=== PATIENT | female | born 1940 | race Caucasian/White ===

== ENCOUNTER 2021-09-25 10:44 | Emergency (ER) | payer MEDICARE, OTHER, SELFPAY ==
[2021-09-25 10:54] VITALS: BP 164/72; PULSE 80; RESP 20; TEMP 37.1; O2SAT 96
--- NOTE | 2021-09-26 19:08 | ED.EAR ---
HPI - Ear Problem General Chief complaint: Ear Stated complaint: ear pain Time Seen by Provider: 09/25/21 11:40 Source: patient and RN notes reviewed Mode of arrival: ambulatory Limitations: no limitations History of Present Illness HPI Narrative: Patient presents today complaining of left ear pain since yesterday with decreased hearing. States chronic ear infections in the left ear since age 17. She comes in today requesting a refill of her Ciprodex. She currently rates her pain 12/22. Denies drainage. MD Complaint: ear pain and decreased hearing Related Data Home Medications Medication Instructions Recorded Confirmed acetaminophen 09/25/21 albuterol sulfate 09/25/21 albuterol sulfate INHALATION 09/25/21 aspirin 09/25/21 budesonide mg 09/25/21 bupropion HCl mg PO 09/25/21 cholecalciferol (vitamin D3) 09/25/21 docusate sodium PO 09/25/21 fexofenadine mg 09/25/21 [id number] INHALATION 09/25/21 [Trelegy Ellipta] ipratropium-albuterol ml INHALATION 09/25/21 levothyroxine 09/25/21 losartan 09/25/21 metoprolol succinate PO 09/25/21 pravastatin 09/25/21 vitamin B complex [B Complex] 1 cap PO DAILY 09/25/21 09/25/21 Allergies Allergy/AdvReac Type Severity Reaction Status Date / Time No Known Allergies Allergy Unverified 05/26/17 12:19 Review of Systems Review of Systems: CONSTITUTIONAL: Denies body aches, fever, chills, or sweats. EYES: Denies visual changes, redness, or discharge. ENT: Denies rhinorrhea, congestion, sore throat. + Left ear pain with decreased hearing CARDIOVASCULAR: Denies chest pain, palpitations, or edema. RESPIRATORY: Denies cough or dyspnea. GASTROINTESTINAL: Denies abdominal pain, nausea, vomiting, or diarrhea. GENITOURINARY: Denies dysuria or hematuria. SKIN: Denies rash, itching, or wounds. MUSCULOSKELETAL: Denies back pain, joint pain, or myalgia. NEUROLOGIC: Denies headache, numbness, tingling, or weakness. PSYCH: Denies depression or anxiety. [facility] / [facility] Past Medical History Medical History (Updated 09/26/21 @ 19:11 by Catrina Garcia, [facility], ) COPD (chronic obstructive pulmonary disease) High cholesterol Hypertension Hypothyroidism Comments At time of signature, I have reviewed and agree with nursing past medical, surgical, social and family history unless otherwise noted. Please see nursing chart for further information. There is no relevant family history pertinent to the presenting complaint Exam Narrative: GENERAL: Well-appearing, well-nourished, and in no acute distress. HEAD: Normocephalic, atraumatic. EYES: EOMI. No redness or drainage. Conjunctivae normal. ENT: Mucous membranes pink and moist. Nares clear. No rhinorrhea. TMs normal bilaterally after removal of bilateral cerumen impactions. Left ear canal is erythematous. See procedure note. NECK: Normal AROM. CHEST: No respiratory distress. EXTREMITIES: Normal range of motion. No edema. SKIN: Warm, dry, no rash. Capillary refill normal. Normal skin turgor. NEURO: No focal deficits. Alert and oriented x3. Gait steady. PSYCH: Normal affect. No signs of depression or anxiety. Course Vital Signs Vital signs: Vital Signs Temperature 98.8 F 09/25/21 10:54 Pulse Rate 80 09/25/21 10:54 Respiratory Rate 20 09/25/21 10:54 Blood Pressure 164/72 H 09/25/21 10:54 Pulse Oximetry 96 09/25/21 10:54 Temperature 98.8 F 09/25/21 10:54 Pulse Rate 80 09/25/21 10:54 Respiratory Rate 20 09/25/21 10:54 Blood Pressure 164/72 H 09/25/21 10:54 Pulse Oximetry 96 09/25/21 10:54 Reviewed. Pt has been instructed to follow up with her PCP regarding her elevated blood pressure today. Procedures Ear Wax Removal Both Ears: Ear Wax Removal Date: 09/25/21 Ear Wax Removal Time: 11:50 TM Examination: TM(s) intact, normal appearance Technique: ear canal curetted (Lighted curette and alligator forceps) Medical Decision Making
== END 2021-09-25 12:07 | disposition home or self-care (01) ==
PROVIDERS: Emergency Provider Nurse Practitioner
DX: H60.92 Unspecified otitis externa, left ear (principal); H61.23 Impacted cerumen, bilateral; J44.9 Chronic obstructive pulmonary disease, unspecified; E78.00 Pure hypercholesterolemia, unspecified; I10 Essential (primary) hypertension; E03.9 Hypothyroidism, unspecified
CPT/HCPCS: 69210; 99203; G0463